=== PATIENT | female | born 1955 | race African-American/Black ===

== ENCOUNTER 2017-09-03 11:52 | Emergency (ER) | payer OTHER ==
[~2017-09-03] VITALS: Ht 170.2 cm; Wt 99.8 kg
[2017-09-03 12:15] VITALS: BP 152/80
[2017-09-03] MEDS ORDERED: ALBUTEROL SULF 2.5 MG/0.5ML(0.5%) NEB SOLN NEB ONE (13:00)
[2017-09-03] MEDS ORDERED: IPRATROPIUM BROM 0.5 MG/2.5ML INH SOL NEB ONE (13:00)
[2017-09-03] MEDS ORDERED: methylPREDNISolone SOD SUCC 125 MG/2 ML VL IM ONE (13:00)
== END 2017-09-03 13:50 | disposition home or self-care (01) ==
LOC: ER 11:52
DX: J20.9 Acute bronchitis, unspecified (principal); I10 Essential (primary) hypertension; E78.5 Hyperlipidemia, unspecified
CPT/HCPCS: 71046; 94640; 96372; 99284; J2930

== ENCOUNTER 2017-09-05 14:56 | Inpatient (IN) | payer OTHER ==
[~2017-09-05] VITALS: Ht 170.2 cm; Wt 98.2 kg
[2017-09-05 15:38] LABS: Basophils # (auto) 0.1 uL; Basophils % (auto) 1.1 % (0.0-2.0); Eosinophils # (auto) 0 uL; Eosinophils % (auto) 0.4 % (0.0-7.0); Hematocrit 42.4 % (36.0-46.0); Hemoglobin 13.9 g/dL (12.2-16.2); Lymphocytes # (auto) 0.8 uL; Lymphocytes % (auto) 14.9 % (10.0-50.0); Mean Corpuscular Hemoglobin 31.3 pg (28.0-32.0); Mean Corpuscular Hgb Conc. 32.8 g/dL (32.0-36.0); Mean Corpuscular Volume 95.6 fL (80.0-100.0); Monocytes # (auto) 0.4 uL; Monocytes % (auto) 6.5 % (0.0-12.0); Neutrophils # (auto) 4.3 uL; Neutrophils % (auto) 77.1 % (37.0-80.0); Nucleated Red Blood Cells % 0.1 %; Platelet Count (auto) 182 10^3/uL (140-450); Red Blood Cells 4.43 10^6/uL (4.0-5.20); Red Cell Distribution Width 11.9 % (11.8-14.3); White Blood Cell 5.6 10^3/uL (4.4-10.8)
[2017-09-05 16:00] LABS: Alanine Aminotransferase 33 U/L (13-56); Albumin 4.5 g/dL (3.4-5.0); Alkaline Phosphatase 111 U/L (45-117); Anion Gap 13 (5-15); Aspartate Aminotransferase 19 U/L (15-37); BUN/Creatinine Ratio 19.4; Bilirubin, Total 0.5 mg/dL (0.2-1.0); Blood Urea Nitrogen 48 mg/dL (7-18); Calcium 9.8 mg/dL (8.5-10.1); Carbon Dioxide 27 mmol/L (21-32); Chloride 85 mmol/L (98-107); GFR African American 25 mL/min; GFR Non-African American 21 mL/min; Magnesium 3.1 mg/dL (1.6-2.6); Potassium 4.6 mmol/L (3.5-5.1); Sodium 125 mmol/L (136-145)
[2017-09-05 16:17] LABS: Glucose 1133 mg/dL (74-106)
[2017-09-05] MEDS ORDERED: SODIUM CHLORIDE 0.9% 1,000 ML IVB ONE (16:54)
[2017-09-05] MEDS ORDERED: InsuLIN R (HUMAN) 100 UNITS in SODIUM CHL 0.9% 99 ML IV SCH ×2 (16:54→18:09)
[2017-09-05] MEDS ORDERED: ONDANSETRON HCL 4 MG/2 ML VIAL IV ONE (17:00)
[2017-09-05] MEDS ORDERED: DEXTROSE (50%) 50ML SYRG IV PRN ×3 (17:00→19:00)
[2017-09-05 17:23] LABS: INR 1.01 (0.9-1.15); Partial Thromboplastin Time 22.3 sec (22.64-33.71)
[2017-09-05 17:29] LABS: Magnesium 2.8 mg/dL (1.6-2.6)
[2017-09-05 17:56] LABS: Urine Bacteria NONE SEEN /hpf (None Seen); Urine Blood TRACE /uL (Negative); Urine Specific Gravity 1.029 (1.001-1.035); Urine WBC <1 /hpf (0 - 5)
[2017-09-05] MEDS ORDERED: ACCU-CHEK COMFORT CURVE STRIP VI SCH (18:00)
[2017-09-05] MEDS ORDERED: TEMAZEPAM 15 MG CAP PO PRN (18:15)
[2017-09-05] MEDS ORDERED: LORazepam 0.5 MG TAB PO PRN (18:15)
[2017-09-05] MEDS ORDERED: ACETAMINOPHEN 500 MG TAB PO PRN (18:15)
[2017-09-05] MEDS ORDERED: PROMETHAZINE HCL 25 MG/ML 1ML IV PRN (18:15)
[2017-09-05] MEDS ORDERED: NITROGLYCERIN 0.4 MG SL TAB SL PRN (18:15)
[2017-09-05] MEDS ORDERED: MORPHINE SULFATE 4 MG/ML SYR/VIAL IV PRN ×2 (18:15)
[2017-09-05] MEDS ORDERED: ALBUTEROL SULF 2.5 MG/0.5ML(0.5%) NEB SOLN NEB PRN (19:00)
[2017-09-05] MEDS: ACCU-CHEK COMFORT CURVE STRIP VI SCH ×3 (19:37→22:48)
[2017-09-05 19:54] LABS: Alcohol, Urine < 3.0 mg/dL (0-5); Amphetamine Screen, Urine NEGATIVE (NEGATIVE); Barbiturate Scree,Urine NEGATIVE (NEGATIVE); Benzodiazephine Screen, Urine NEGATIVE (NEGATIVE); Cannabinoid Screen, Urine NEGATIVE (NEGATIVE); Cocaine Screen, Urine NEGATIVE (NEGATIVE); Opiate Scree,Urine NEGATIVE (NEGATIVE); Phencyclidine Screen, Urine NEGATIVE (NEGATIVE)
[2017-09-05] MEDS: DOXYCYCLINE HYC 100MG/250ML 250 ML IV SCH (20:18)
[2017-09-05 20:30] VITALS: BP 117/81
[2017-09-05] MEDS ORDERED: OSELTAMIVIR 75 MG CAP PO SCH (22:00)
[2017-09-06] MEDS: ACCU-CHEK COMFORT CURVE STRIP VI SCH ×7 (00:07→20:15)
[2017-09-06] MEDS ORDERED: SODIUM CHLORIDE 0.9% 1,000 ML IV SCH (00:09)
[2017-09-06 01:17] LABS: BUN/Creatinine Ratio 22.4; Calcium 9.7 mg/dL (8.5-10.1); Potassium 3.9 mmol/L (3.5-5.1)
[2017-09-06] MEDS ORDERED: DEXTROSE (50%) 50ML SYRG IV PRN (04:30)
[2017-09-06 06:35] LABS: Basophils # (auto) 0 uL; Basophils % (auto) 0.6 % (0.0-2.0); Eosinophils # (auto) 0.2 uL; Eosinophils % (auto) 2.8 % (0.0-7.0); Hematocrit 39.4 % (36.0-46.0); Hemoglobin 13.7 g/dL (12.2-16.2); Lymphocytes # (auto) 2.6 uL; Lymphocytes % (auto) 40.3 % (10.0-50.0); Mean Corpuscular Hemoglobin 31.4 pg (28.0-32.0); Mean Corpuscular Hgb Conc. 34.8 g/dL (32.0-36.0); Mean Corpuscular Volume 90.2 fL (80.0-100.0); Monocytes # (auto) 0.6 uL; Monocytes % (auto) 9.2 % (0.0-12.0); Neutrophils % (auto) 47.1 % (37.0-80.0); Nucleated Red Blood Cells % 0.1 %; Platelet Count (auto) 162 10^3/uL (140-450); Red Blood Cells 4.36 10^6/uL (4.0-5.20); Red Cell Distribution Width 12.4 % (11.8-14.3); White Blood Cell 6.4 10^3/uL (4.4-10.8)
[2017-09-06 06:51] LABS: BUN/Creatinine Ratio 22.8; Bilirubin, Total 0.4 mg/dL (0.2-1.0); Calcium 9.5 mg/dL (8.5-10.1); Potassium 3.9 mmol/L (3.5-5.1); Total Protein 8.2 g/dL (6.4-8.2)
[2017-09-06 06:52] LABS: Cholesterol 142 mg/dL (< 200); HDL Cholesterol 44 mg/dL (40-59); LDL Cholesterol 80 mg/dL (< 100); Triglycerides 210 mg/dL (< 150)
[2017-09-06] MEDS: DOXYCYCLINE HYC 100MG/250ML 250 ML IV SCH ×2 (06:57→19:00)
[2017-09-06] MEDS: HYDROcodone-ACET 5/325MG TAB PO PRN (06:58)
[2017-09-06] MEDS ORDERED: OSELTAMIVIR 75 MG CAP PO ONE (07:00)
[2017-09-06 07:02] VITALS: BP 140/53
[2017-09-06] MEDS: IPRATROPIUM BROM 0.5 MG/2.5ML INH SOL NEB SCH ×4 (07:03→18:28)
[2017-09-06] MEDS: ALBUTEROL SULF 2.5 MG/0.5ML(0.5%) NEB SOLN NEB SCH ×4 (07:03→18:28)
[2017-09-06] MEDS ORDERED: METO-5 PO (08:22)
[2017-09-06] MEDS ORDERED: ROSU20TA14 PO (08:22)
[2017-09-06] MEDS ORDERED: ASPI-231 PO (08:22)
[2017-09-06] MEDS ORDERED: [UNRECOGNIZED DRUG - CODE] PO (08:22)
[2017-09-06] MEDS ORDERED: CIPR-217 PO (08:22)
[2017-09-06] MEDS ORDERED: HYDR-2551 PO (08:22)
[2017-09-06] MEDS ORDERED: OMEP20CA74 PO (08:22)
[2017-09-06] MEDS: InsuLIN REG 1unit/0.01ml Soln (100units/ml) SC SCH ×4 (08:55→20:19)
[2017-09-06] MEDS: PANTOPRAZOLE 40 MG TAB PO SCH (08:55)
[2017-09-06] MEDS: ASPirin 81 mg TAB PO SCH (08:55)
[2017-09-06 09:14] VITALS: BP 123/71
[2017-09-06 13:00] VITALS: BP 128/71
[2017-09-06] MEDS ORDERED: INSULIN LANTUS (GLARGINE) 1 /0.01ml (100units/ml) SC ONE (16:15)
[2017-09-06 17:12] VITALS: BP 111/60
[2017-09-06] MEDS ORDERED: OSELTAMIVIR 30 MG CAP PO SCH (22:00)
[2017-09-06 22:18] VITALS: BP 113/62
[2017-09-06] MEDS: INSULIN LANTUS (GLARGINE) 1 /0.01ml (100units/ml) SC SCH (23:00)
[2017-09-07] MEDS: ACCU-CHEK COMFORT CURVE STRIP VI SCH ×6 (00:14→21:11)
[2017-09-07] MEDS: InsuLIN REG 1unit/0.01ml Soln (100units/ml) SC SCH ×6 (00:14→21:11)
[2017-09-07] MEDS: ALBUTEROL SULF 2.5 MG/0.5ML(0.5%) NEB SOLN NEB SCH ×4 (00:27→18:55)
[2017-09-07] MEDS: IPRATROPIUM BROM 0.5 MG/2.5ML INH SOL NEB SCH ×4 (00:27→18:55)
[2017-09-07 04:36] VITALS: BP 108/65
[2017-09-07 05:47] LABS: Basophils # (auto) 0 uL; Basophils % (auto) 0.5 % (0.0-2.0); Eosinophils # (auto) 0.3 uL; Eosinophils % (auto) 5.4 % (0.0-7.0); Hematocrit 36.9 % (36.0-46.0); Hemoglobin 12.8 g/dL (12.2-16.2); Lymphocytes # (auto) 2.2 uL; Lymphocytes % (auto) 40.9 % (10.0-50.0); Mean Corpuscular Hemoglobin 31.3 pg (28.0-32.0); Mean Corpuscular Hgb Conc. 34.6 g/dL (32.0-36.0); Mean Corpuscular Volume 90.7 fL (80.0-100.0); Monocytes # (auto) 0.5 uL; Monocytes % (auto) 8.6 % (0.0-12.0); Neutrophils # (auto) 2.4 uL; Neutrophils % (auto) 44.6 % (37.0-80.0); Nucleated Red Blood Cells % 0.2 %; Platelet Count (auto) 138 10^3/uL (140-450); Red Blood Cells 4.07 10^6/uL (4.0-5.20); White Blood Cell 5.3 10^3/uL (4.4-10.8)
[2017-09-07] MEDS: INSULIN LANTUS (GLARGINE) 1 /0.01ml (100units/ml) SC SCH ×2 (06:20→21:12)
[2017-09-07] MEDS: DOXYCYCLINE HYC 100MG/250ML 250 ML IV SCH ×2 (06:31→18:36)
[2017-09-07 06:47] LABS: Albumin 3.4 g/dL (3.4-5.0); BUN/Creatinine Ratio 19.4; Bilirubin, Total 0.7 mg/dL (0.2-1.0); Calcium 9.2 mg/dL (8.5-10.1); Potassium 3.4 mmol/L (3.5-5.1); Total Protein 7.2 g/dL (6.4-8.2)
[2017-09-07 08:00] VITALS: BP 123/67
[2017-09-07 09:00] VITALS: BP 123/67
[2017-09-07] MEDS: ASPirin 81 mg TAB PO SCH (09:20)
[2017-09-07] MEDS: PANTOPRAZOLE 40 MG TAB PO SCH (09:20)
[2017-09-07] MEDS ORDERED: POTASSIUM CHL 10 Meq TABLET PO ONE (10:15)
[2017-09-07 13:00] VITALS: BP 126/80
[2017-09-07 17:00] VITALS: BP 109/75
[2017-09-07 21:59] VITALS: BP 128/76
[2017-09-08] MEDS: ACCU-CHEK COMFORT CURVE STRIP VI SCH ×6 (00:34→20:30)
[2017-09-08] MEDS: InsuLIN REG 1unit/0.01ml Soln (100units/ml) SC SCH ×6 (00:35→20:31)
[2017-09-08] MEDS: IPRATROPIUM BROM 0.5 MG/2.5ML INH SOL NEB SCH ×4 (00:41→19:34)
[2017-09-08] MEDS: ALBUTEROL SULF 2.5 MG/0.5ML(0.5%) NEB SOLN NEB SCH ×4 (00:41→19:34)
[2017-09-08 04:59] VITALS: BP 118/67
[2017-09-08] MEDS: DOXYCYCLINE HYC 100MG/250ML 250 ML IV SCH (06:02)
[2017-09-08 06:31] LABS: Basophils # (auto) 0 uL; Basophils % (auto) 0.6 % (0.0-2.0); Eosinophils # (auto) 0.2 uL; Eosinophils % (auto) 4.4 % (0.0-7.0); Hemoglobin 12.4 g/dL (12.2-16.2); Lymphocytes # (auto) 1.9 uL; Lymphocytes % (auto) 38.5 % (10.0-50.0); Mean Corpuscular Hemoglobin 31.4 pg (28.0-32.0); Mean Corpuscular Hgb Conc. 34.5 g/dL (32.0-36.0); Monocytes # (auto) 0.4 uL; Monocytes % (auto) 7.8 % (0.0-12.0); Neutrophils # (auto) 2.4 uL; Neutrophils % (auto) 48.7 % (37.0-80.0); Platelet Count (auto) 120 10^3/uL (140-450); Red Blood Cells 3.96 10^6/uL (4.0-5.20); Red Cell Distribution Width 11.9 % (11.8-14.3)
[2017-09-08 06:52] LABS: BUN/Creatinine Ratio 19.2; Calcium 8.7 mg/dL (8.5-10.1); Potassium 3.4 mmol/L (3.5-5.1)
[2017-09-08] MEDS: INSULIN LANTUS (GLARGINE) 1 /0.01ml (100units/ml) SC SCH ×2 (07:21→22:11)
[2017-09-08 08:48] VITALS: BP 133/76
[2017-09-08] MEDS: ASPirin 81 mg TAB PO SCH (09:09)
[2017-09-08] MEDS: PANTOPRAZOLE 40 MG TAB PO SCH (09:09)
[2017-09-08 09:52] VITALS: BP 133/76
[2017-09-08] MEDS ORDERED: HCTZ 25 MG TAB PO SCH (10:00)
[2017-09-08] MEDS ORDERED: POTASSIUM CHL 20 Meq TABLET PO ONE (11:30)
[2017-09-08 12:12] VITALS: BP 131/65
[2017-09-08 16:44] VITALS: BP 132/79
[2017-09-08] MEDS: HYDROcodone-ACET 5/325MG TAB PO PRN (20:31)
[2017-09-08 22:00] VITALS: BP 117/61
[2017-09-09] MEDS: ACCU-CHEK COMFORT CURVE STRIP VI SCH ×6 (00:02→20:38)
[2017-09-09] MEDS: InsuLIN REG 1unit/0.01ml Soln (100units/ml) SC SCH ×6 (00:06→20:38)
[2017-09-09] MEDS: IPRATROPIUM BROM 0.5 MG/2.5ML INH SOL NEB SCH ×4 (00:33→19:10)
[2017-09-09] MEDS: ALBUTEROL SULF 2.5 MG/0.5ML(0.5%) NEB SOLN NEB SCH ×4 (00:33→19:10)
[2017-09-09 06:16] VITALS: BP 110/60
[2017-09-09 06:31] LABS: Basophils # (auto) 0 uL; Basophils % (auto) 0.5 % (0.0-2.0); Eosinophils # (auto) 0.2 uL; Eosinophils % (auto) 3.4 % (0.0-7.0); Hematocrit 33.1 % (36.0-46.0); Hemoglobin 11.5 g/dL (12.2-16.2); Lymphocytes # (auto) 1.7 uL; Lymphocytes % (auto) 30.6 % (10.0-50.0); Mean Corpuscular Hemoglobin 31.8 pg (28.0-32.0); Mean Corpuscular Hgb Conc. 34.6 g/dL (32.0-36.0); Mean Corpuscular Volume 91.9 fL (80.0-100.0); Monocytes # (auto) 0.5 uL; Monocytes % (auto) 8.6 % (0.0-12.0); Neutrophils # (auto) 3.2 uL; Neutrophils % (auto) 56.9 % (37.0-80.0); Nucleated Red Blood Cells % 0.1 %; Platelet Count (auto) 115 10^3/uL (140-450); Red Cell Distribution Width 12.2 % (11.8-14.3); White Blood Cell 5.6 10^3/uL (4.4-10.8)
[2017-09-09] MEDS: INSULIN LANTUS (GLARGINE) 1 /0.01ml (100units/ml) SC SCH ×2 (06:31→22:49)
[2017-09-09 06:51] LABS: Calcium 8.9 mg/dL (8.5-10.1); Potassium 3.7 mmol/L (3.5-5.1)
[2017-09-09 06:59] LABS: BUN/Creatinine Ratio 19.2
[2017-09-09 09:00] VITALS: BP 124/68
[2017-09-09] MEDS ORDERED: ADENOSINE 82 MG in GIVE UN-DILUTED 0 ML IV ONE (09:15)
[2017-09-09] MEDS: ASPirin 81 mg TAB PO SCH (10:00)
[2017-09-09] MEDS: PANTOPRAZOLE 40 MG TAB PO SCH (10:00)
[2017-09-09 10:29] VITALS: BP 130/80
[2017-09-09 13:00] VITALS: BP 120/76
[2017-09-09 17:00] VITALS: BP_SYST 120
[2017-09-09 22:00] VITALS: BP 144/79
[2017-09-10] MEDS: IPRATROPIUM BROM 0.5 MG/2.5ML INH SOL NEB SCH ×4 (00:01→19:14)
[2017-09-10] MEDS: ACCU-CHEK COMFORT CURVE STRIP VI SCH ×6 (04:25→21:45)
[2017-09-10] MEDS: InsuLIN REG 1unit/0.01ml Soln (100units/ml) SC SCH ×6 (04:26→21:45)
[2017-09-10 05:26] VITALS: BP 130/65
[2017-09-10 07:10] LABS: Basophils # (auto) 0 uL; Basophils % (auto) 0.7 % (0.0-2.0); Eosinophils # (auto) 0.2 uL; Eosinophils % (auto) 3.2 % (0.0-7.0); Hematocrit 32.8 % (36.0-46.0); Hemoglobin 11.2 g/dL (12.2-16.2); Lymphocytes # (auto) 1.5 uL; Lymphocytes % (auto) 26.7 % (10.0-50.0); Mean Corpuscular Hemoglobin 32.1 pg (28.0-32.0); Mean Corpuscular Hgb Conc. 34.3 g/dL (32.0-36.0); Mean Corpuscular Volume 93.7 fL (80.0-100.0); Monocytes # (auto) 0.6 uL; Monocytes % (auto) 10.3 % (0.0-12.0); Neutrophils # (auto) 3.3 uL; Neutrophils % (auto) 59.1 % (37.0-80.0); Nucleated Red Blood Cells % 0.1 %; Platelet Count (auto) 119 10^3/uL (140-450); White Blood Cell 5.7 10^3/uL (4.4-10.8)
[2017-09-10 07:16] LABS: BUN/Creatinine Ratio 16.9; Calcium 8.7 mg/dL (8.5-10.1); Potassium 3.9 mmol/L (3.5-5.1)
[2017-09-10] MEDS: INSULIN LANTUS (GLARGINE) 1 /0.01ml (100units/ml) SC SCH (07:16)
[2017-09-10] MEDS: ALBUTEROL SULF 2.5 MG/0.5ML(0.5%) NEB SOLN NEB SCH ×4 (07:25→19:14)
[2017-09-10 08:14] VITALS: BP 103/60
[2017-09-10] MEDS: PANTOPRAZOLE 40 MG TAB PO SCH (09:12)
[2017-09-10] MEDS: ASPirin 81 mg TAB PO SCH (09:13)
[2017-09-10 11:57] VITALS: BP 130/74
[2017-09-10] MEDS: NYSTATIN (MOUTH-THROAT) 500,000 UNITS/5 ML SUSP MT SCH ×2 (17:32→22:42)
[2017-09-10] MEDS ORDERED: ATORVASTATIN 20 MG TAB PO SCH (22:00)
[2017-09-10] MEDS ORDERED: INSULIN LANTUS (GLARGINE) 1 /0.01ml (100units/ml) SC SCH (22:00)
[2017-09-10 23:18] VITALS: BP 128/66
[2017-09-11] MEDS: IPRATROPIUM BROM 0.5 MG/2.5ML INH SOL NEB SCH ×3 (00:02→13:56)
[2017-09-11] MEDS: ALBUTEROL SULF 2.5 MG/0.5ML(0.5%) NEB SOLN NEB SCH ×3 (00:02→13:56)
[2017-09-11] MEDS: InsuLIN REG 1unit/0.01ml Soln (100units/ml) SC SCH ×5 (01:00→16:03)
[2017-09-11] MEDS: ACCU-CHEK COMFORT CURVE STRIP VI SCH ×5 (01:00→16:03)
[2017-09-11] MEDS: HYDROcodone-ACET 5/325MG TAB PO PRN (01:06)
[2017-09-11 05:25] VITALS: BP 114/58
[2017-09-11] MEDS: NYSTATIN (MOUTH-THROAT) 500,000 UNITS/5 ML SUSP MT SCH ×2 (06:40→11:50)
[2017-09-11] MEDS ORDERED: glipiZIDE 5 MG TAB PO SCH ×2 (07:00→18:00)
[2017-09-11] MEDS ORDERED: INSULIN LANTUS (GLARGINE) 1 /0.01ml (100units/ml) SC SCH (07:00)
[2017-09-11] MEDS: PANTOPRAZOLE 40 MG TAB PO SCH (09:05)
[2017-09-11] MEDS: ASPirin 81 mg TAB PO SCH (09:05)
[2017-09-11 09:28] VITALS: BP 114/58
[2017-09-11 12:47] VITALS: BP 114/58
[2017-09-11 13:00] VITALS: BP 116/66
[2017-09-11] MEDS ORDERED: metFORMIN HYDROCHLORIDE 500 MG TAB PO SCH (18:00)
== END 2017-09-11 16:10 | disposition home or self-care (01) | DRG 469 ==
LOC: ER 14:56 → TELE 14:57 → TELE-CENTR 09-06 08:44
PROVIDERS: ADMIT Internal Medicine; ATTEND Internal Medicine
DX: N17.0 Acute kidney failure with tubular necrosis (principal); E11.00 Type 2 diabetes mellitus with hyperosmolarity without nonketotic hyperglycemic-hyperosmolar coma (NKHHC); E11.21 Type 2 diabetes mellitus with diabetic nephropathy; I42.9 Cardiomyopathy, unspecified; N18.4 Chronic kidney disease, stage 4 (severe); E11.22 Type 2 diabetes mellitus with diabetic chronic kidney disease; E78.5 Hyperlipidemia, unspecified; E86.0 Dehydration; E87.1 Hypo-osmolality and hyponatremia; E87.6 Hypokalemia; I12.9 Hypertensive chronic kidney disease with stage 1 through stage 4 chronic kidney disease, or unspecified chronic kidney disease; E66.9 Obesity, unspecified; F41.9 Anxiety disorder, unspecified; G47.00 Insomnia, unspecified; R94.31 Abnormal electrocardiogram [ECG] [EKG]; Z68.33 Body mass index [BMI] 33.0-33.9, adult; Z83.3 Family history of diabetes mellitus; Z79.82 Long term (current) use of aspirin; Z79.899 Other long term (current) drug therapy; Z71.89 Other specified counseling
CPT/HCPCS: 36415; 36600; 71046; 74176; 76775; 78452; 80048; 80053; 80061; 80307; 81001; 82150; 82550; 82805; 82962; 83036; 83690; 83735; 83880; 84484; 85025; 85610; 85652; 85730; 86141; 87070; 87205; 87804; 93005; 93017; 93306; 94640; 94761; 96361; 96374; J0153; J1815; J3490